=== PATIENT | female | born 1985 | race American Indian/Alaskan Native ===

== ENCOUNTER 2018-07-08 10:00 | Inpatient (IN) | payer OTHER ==
[2018-07-03 13:21] VITALS: BMI 31.7
[2018-07-15] MEDS ORDERED: Methylene Blue 10 mg/mL(10ml) IV ONE ×2 (07:25→07:46)
[2018-07-15] MEDS ORDERED: ceFOXitin IV 1 gm/100 ml in NS 2 GM/200 ML BAG ONE (07:25)
[2018-07-15] MEDS ORDERED: Bacitracin Ointment 30 GM TUBE ONE (07:25)
[2018-07-15] MEDS ORDERED: Rocuronium 10 mg/ml (5 ml) ONE (07:45)
[2018-07-15] MEDS ORDERED: Midazolam 2 MG/2 ML VIAL ONE (07:45)
[2018-07-15] MEDS ORDERED: Propofol 10 mg/ml Inj (20 ML) ONE (07:45)
[2018-07-15] MEDS ORDERED: Naloxone 0.4 mg/ml Inj (Adult) IVP PRN (10:31)
[2018-07-15] MEDS: HYDROmorphone 0.5 mg/0.5 ml ISec IVP PRN ×5 (10:32→21:22)
[2018-07-15] MEDS ORDERED: Lactated Ringer's 1,000 ML IV ONE (12:00)
[2018-07-15] MEDS: Lactated Ringer's 1,000 ML IV SCH ×2 (12:15→23:49)
[2018-07-15] MEDS: cefOXitin IV 2 gm in Dextrose 2 GM/50 ML BAG IVPB SCH ×2 (16:29→23:46)
--- NOTE | 2018-07-15 21:28 | OP ---
PROCEDURE DATE: 07/15/2018 PREOPERATIVE DIAGNOSES: Fibroid uterus, menorrhagia. POSTOPERATIVE DIAGNOSES: Fibroid uterus, menorrhagia. PROCEDURE: Total abdominal hysterectomy, bilateral salpingectomy, cystoscopy. SURGEON: Curly Interiano MD ELECTRICAL PROSPECTING OPERATOR: Ramses Rao PA-C ESTIMATED BLOOD LOSS: 200 mL. COMPLICATIONS: Nil. DESCRIPTION OF PROCEDURE: After the risks, benefits, and alternatives of the planned procedures including, but not limited to infection, hemorrhage, deep vein thrombosis, atelectasis, pneumonia, pulmonary embolism, damage to the bladder, damage to the ureter, renal insufficiency, renal failure, wound infection, wound dehiscence, incisional hernia, keloid formation, damage to the large and small intestine, damage to the inferior vena cava and the aorta requiring extensive repair, anesthesia complications, electrolyte imbalance, possibility of , fluid overload, cerebral edema, embolism, and other complications that were discussed, but are not listed above, have been explained to the patient and all her questions answered. The informed consent was obtained. The patient was taken to the operating room in a stable condition. Under a suitable level of general analgesia, she was prepped and draped in a sterile fashion after having been placed in a supine position. The abdomen was entered through a Pfannenstiel-type incision, carried through the subcutaneous tissues to the fascia. Fascia was opened transversely and dissected off the rectus abdominis musculature. Rectus abdominis musculature was then in the midline to remove the parietal peritoneum which was entered sharply and incised superiorly and inferiorly. An O'Manuel-O'Sam retractor was inserted into the abdomen and bowel was packed away from the pelvic cavity. The uterus was elevated from the pelvic cavity. The right and left round ligaments were then clamped, cut, and ligated using 0 Vicryl suture. The anterior lip of the broad ligament was opened on the right and left side joining the midline over the bladder reflection. The bladder was then dissected of the lower uterine segment and cervix. A hole was made in the broad ligament on the right and left side and the right and left upper portion of the broad ligament, cornua, and utero-ovarian ligaments were doubly clamped, cut, and doubly ligated using 0 Vicryl suture. The right and left cardinal ligaments were then clamped, cut, and ligated using 0 Vicryl suture. The right and left uterosacral ligaments were clamped, cut, and ligated using 0 Vicryl suture. Vagina was then incised adjacent to the cervix in a circumferential fashion and the uterine specimen and cervix were removed and submitted for pathology. The right and left fallopian tubes were removed by resecting the mesosalpinx. The pelvic peritoneum was then reapproximated over the vaginal cuff using a running suture of 2-0 chromic. Peritoneal cavity was then irrigated using copious amounts of saline. The saline was evacuated. The abdomen was then closed in layers with 0 chromic to the parietal peritoneum. Rectus muscles were reapproximated using interrupted sutures of 0 chromic. Fascia was reapproximated using two separate running sutures of 0 Vicryl to meet in the midline. Subcutaneous tissues were reapproximated using interrupted sutures of 0 plain, and the initial skin incision was reapproximated using 4-0 Vicryl in a subcuticular fashion. The patient was then placed in a dorsal lithotomy position. Cystoscopy was performed. The patient had been given IV methylene blue. The urethra and bladder neck were normal. The anterior of the bladder was inspected and noted to be normal with normal mucosa. Both ureteric orifices were visualized and dye was noted to be coming out of both ureteric orifices. At the end of the procedure, the instruments were removed from the vagina. The patient was then transferred to the recovery room in a stable position. Pad and instruments counts were correct x2. There were no complications. Curly Interiano MD
[2018-07-16] MEDS: HYDROmorphone 0.5 mg/0.5 ml ISec IVP PRN ×2 (01:56→05:51)
[2018-07-16] MEDS: cefOXitin IV 2 gm in Dextrose 2 GM/50 ML BAG IVPB SCH (07:54)
[2018-07-16 08:21] LABS: HEMOGLOBIN 11.9 g/dL (11.0-16.0); MEAN CELL VOLUME 90.5 fL (81.0-99.0); MEAN CORPUSCULAR HEMOGLOBIN 30.1 pg (27.0-31.0); MEAN CORPUSCULAR HGB CONC 33.2 g/dL (33.0-37.0); MEAN PLATELET VOLUME 9.3 fL (7.2-11.7); RBC 3.94 Mil/uL (3.80-5.20); RED CELL DISTRIBUTION WIDTH 14.1 % (11.5-14.5); WHITE BLOOD COUNT 8.9 K/uL (4.8-10.8)
[2018-07-16] MEDS: Enoxaparin 40 mg Syringe SC SCH (10:01)
[2018-07-16] MEDS: Simethicone 80 mg Chewtab PO PRN ×2 (10:02→14:14)
[2018-07-16] MEDS: Oxycodone/Acetaminophen 5/325 mg Tab PO PRN ×4 (10:02→22:54)
--- NOTE | 2018-07-16 20:43 | PN ---
DATE: 07/16/2018 SUBJECTIVE: The patient has mild incisional pain. OBJECTIVE: VITAL SIGNS: Stable. She is afebrile. ABDOMEN: Incision is clean and intact. CHEST: Clear. CARDIAC: Exam reveals normal heart sounds without any murmurs. LUNGS: Clear. EXTREMITIES: Nontender with no evidence of DVT. ASSESSMENT: This patient is status post total abdominal hysterectomy, bilateral salpingectomy, and cystoscopy. PLAN: Ambulate the patient. Advance diet as tolerated. Curly Interiano MD
[2018-07-17] MEDS: Oxycodone/Acetaminophen 5/325 mg Tab PO PRN ×2 (02:54→08:25)
[2018-07-17 06:03] VITALS: RESP 20; O2SAT 98
--- NOTE | 2018-07-17 09:12 | CP.PCM.DIS ---
<Dawn Page - Last Filed: 07/17/18 09:36> Provider - Provider Date of Admission: 07/15/18 05:41 Attending physician: Curly Interiano MD Time Spent in preparation of Discharge (in minutes): 45 Hospital Course - Lab Results Lab Results: Most Recent Lab Values WBC 8.9 K/uL (4.8-10.8) 07/16/18 08:09 RBC 3.94 Mil/uL (3.80-5.20) 07/16/18 08:09 Hgb 11.9 g/dL (11.0-16.0) 07/16/18 08:09 Hct 35.7 % (34.0-47.0) 07/16/18 08:09 MCV 90.5 fL (81.0-99.0) 07/16/18 08:09 MCH 30.1 pg (27.0-31.0) 07/16/18 08:09 MCHC 33.2 g/dL (33.0-37.0) 07/16/18 08:09 RDW 14.1 % (11.5-14.5) 07/16/18 08:09 Plt Count 224 K/uL (130-400) 07/16/18 08:09 MPV 9.3 fL (7.2-11.7) 07/16/18 08:09 Blood Type AB POSITIVE 07/15/18 06:57 Antibody Screen Negative 07/15/18 06:57 - Hospital Course Hospital Course: Pt is 32yo female with PMH of uterine fibroids and menorrhagia presenting to the hospital for a total abdominal hysterectomy and bilateral salpingectomy done on 07/15/18, currently POD2. The surgery was performed by Dr. Interiano. There were no intraoperative complications. Pt had estimated blood loss of 200mL. Pt currently has mild abdominal pain. The surgical wound is clean and dry with no erythema and no exudates. Pt denies vaginal bleeding/discharge. Post op labs unremarkable with H/H WNL. Pt is afebrile and stable for discharge to home. Pt will be discharged on Keflex 500 PO QID for 7 days and Tylenol #3 PO q4 as needed for pain. Josee Seymour OMS III Agree with above Student Doctor [employer]'s documentation Dawn Law DO PGY1 Discharge Exam - Head Exam Head Exam: ATRAUMATIC, NORMAL INSPECTION - Eye Exam Eye Exam: Normal appearance - ENT Exam ENT Exam: Mucous Membranes Moist - Respiratory Exam Respiratory Exam: Clear to PA & Lateral, NORMAL BREATHING PATTERN, UNREMARKABLE. absent: Accessory Muscle Use, Chest Wall Tenderness, Decreased Breath Sounds, Rales, Rhonchi, Wheezes - Cardiovascular Exam Cardiovascular Exam: REGULAR RHYTHM, RRR, +S1, +S2. absent: Gallop, Rubs - GI/Abdominal Exam GI & Abdominal Exam: Hypoactive Bowel Sounds, Soft, Tenderness. absent: Distended, Firm, Guarding, Organomegaly, Rebound - Exam External exam: absent: Ecchymosis, Erythema - Neurological Exam Neurological exam: Alert, Oriented x3 - Psychiatric Exam Psychiatric exam: Normal Affect, Normal Mood - Skin Skin Exam: Normal Color Discharge Plan - Follow Up Plan Condition: GOOD Disposition: HOME/ ROUTINE Instructions: Hysterectomy (DC) Additional Instructions: Avoid heavy lifting for for 4-6 weeks. Nothing per vagina. Continue ambulating. Keep surgical wound clean and dry. Pt should follow up with Dr. Interiano in one week. Advise to return to the hospital if pain becomes more severe, fever/chills develop, you notice any swelling or redness around surgical site, or if you experience vaginal bleeding. <Marilyn Ricardo A - Last Filed: 07/17/18 17:29> Provider - Provider Date of Admission: 07/15/18 05:41 Attending physician: Curly Interiano MD Hospital Course - Lab Results Lab Results: Most Recent Lab Values WBC 8.9 K/uL (4.8-10.8) 07/16/18 08:09 RBC 3.94 Mil/uL (3.80-5.20) 07/16/18 08:09 Hgb 11.9 g/dL (11.0-16.0) 07/16/18 08:09 Hct 35.7 % (34.0-47.0) 07/16/18 08:09 MCV 90.5 fL (81.0-99.0) 07/16/18 08:09 MCH 30.1 pg (27.0-31.0) 07/16/18 08:09 MCHC 33.2 g/dL (33.0-37.0) 07/16/18 08:09 RDW 14.1 % (11.5-14.5) 07/16/18 08:09 Plt Count 224 K/uL (130-400) 07/16/18 08:09 MPV 9.3 fL (7.2-11.7) 07/16/18 08:09 Blood Type AB POSITIVE 07/15/18 06:57 Antibody Screen Negative 07/15/18 06:57 Attending/Attestation - Attestation I have personally seen and examined this patient.: Yes I have fully participated in the care of the patient.: Yes I have reviewed all pertinent clinical information, including history, physical exam and plan: Yes Notes (Text): 07/17/18 17:[address] Interiano to assess patietn for discharge. Patient was seen by me at approximately 1100 hours: recieved in bed in room 455. Denied nausea, vomiting; at that time, had not yet passed flatus or had BM. Voiding and ambulating, alhough only in patient room. Looking forward to going home Limited physical exam: Abdomen: (+) ABS. No distended. Soft. non tender in all quadrants. Incision - clean , dry and intact with sub-cuticular closure. Extremities: no calf tenderness, or edema - POD#1 H/H 11.9/35.7 Assessment: POD#2, 32 y.o. P3, S/P JUDAH with bilateral salpingectomy secondary to symptomatic leiomyomatous uteri. Afebrile, VSS. Returning GI and functions. Ambulation is encouraged. Patient is stable for discharge. Plan: 1) Discharge home, per Dr. Perez 2) F/U Dr. Perez in 1 week 3) Take medications as prescribed by Dr. Perez
[2018-07-17] MEDS: Enoxaparin 40 mg Syringe SC SCH (10:07)
[2018-07-17] MEDS ORDERED: Influenza Vaccine 60 mcg/0.5 mL SYR (4YR UP) IM ONE (10:21)
[2018-07-17 12:13] VITALS: BP 116/73; PULSE 78; TEMP 98
== END 2018-07-17 11:20 | disposition home or self-care (01) | DRG 359 ==
LOC: C.9S 07-15 05:41 → C.4M 07-15 12:03
PROVIDERS: ADMIT Obstetrics & Gynecology Reproductive Endocrinology; ATTEND Obstetrics & Gynecology Reproductive Endocrinology
PROC: 0UT70ZZ Resection of Bilateral Fallopian Tubes, Open Approach (ICD-10-PCS; 2018-07-15)
PROC: 0TJB8ZZ Inspection of Bladder, Via Natural or Artificial Opening Endoscopic (ICD-10-PCS; 2018-07-15)
PROC: 0UT90ZZ Resection of Uterus, Open Approach (ICD-10-PCS; principal; 2018-07-15 07:45)
DX: D25.9 Leiomyoma of uterus, unspecified (principal); N72 Inflammatory disease of cervix uteri; N92.0 Excessive and frequent menstruation with regular cycle